=== PATIENT | female | born 1940 | race Caucasian/White ===

== ENCOUNTER 2017-05-20 20:01 | Inpatient (IN) ==
[2017-05-21] MEDS ORDERED: *HR* Morphine 2 MG/ML SYRINGE IVP ONE (01:25)
[2017-05-21] MEDS ORDERED: *HR* HYDROcodone/Acet 10/325 mg TABLET PO PRN (01:38)
[2017-05-21] MEDS ORDERED: Aspirin Enteric Coated 81 MG Tablet PO PRN (01:38)
[2017-05-21] MEDS ORDERED: Naloxone 0.4 MG/ML INJ IVP PRN (01:40)
[2017-05-21] MEDS ORDERED: Ondansetron 4 MG/2 ML VIAL IVP PRN (01:40)
--- NOTE | 2017-05-21 01:48 | Internal Med History&Physical ---
Date of Encounter: 05/21/17 Time of Encounter: 01:44 Assessment and Plan (1) Closed tibial fracture Current visit: Yes Status: Acute Consult orthopedics for surgical eval, nothing by mouth, IV morphine pain control Qualifiers: Encounter type: initial encounter Fracture morphology: comminuted Fracture alignment: nondisplaced Laterality: right Qualified Code(s): S82.254A - Nondisplaced comminuted fracture of shaft of right tibia, initial encounter for closed fracture (2) Closed fibular fracture Current visit: Yes Status: Acute Consult orthopedics for surgical eval, nothing by mouth, IV morphine pain control Qualifiers: Encounter type: initial encounter Fracture alignment: nondisplaced Laterality: right Qualified Code(s): S82.464A - Nondisplaced segmental fracture of shaft of right fibula, initial encounter for closed fracture (3) Fall Current visit: Yes Status: Acute fall with tailbone pain. hx of osteoporosis with compression fracture. Check CT lumbar/pelvis to r/o acute pathology - did not appear to have been completed in the outside ED Qualifiers: Encounter type: initial encounter Qualified Code(s): W19.XXXA - Unspecified fall, initial encounter (4) Chronic pain Current visit: Yes Status: Acute Continue fentanyl and home PO med Prn IV morphine for acute on chronic pain. Qualifiers: Chronic pain type: chronic pain syndrome Qualified Code(s): G89.4 - Chronic pain syndrome (5) HTN (hypertension), benign Current visit: Yes Status: Acute continue med Internal Medicine - H&P: HPI Chief complaint: Left leg pain Admitted From: Home History of present illness: Ms. STREET is a 77 year old female with a hx of chronic pain from compression back fractures in the setting of osteoarthritis, HTN who presents with mechanical fall leading to comminuted impacted fracture of proximal tibia and fibular head fracture. She was walking home from [place] when she took a step down with 2 feet to the ground when she lost her balance and fell injuring her right leg and her tailbone as she landed on her back. She reports severe 10 out of 10 pain over her right lower extremity, she, radiating to the entire leg. She also had tailbone pain from local impact. She denies any lower extremity paresthesia or neurovascular compromise on review She was seen at [place] emergency department who informed Dr Yancey has accepted the case. Right leg x-ray report reviewed with comminuted impacted fracture of the proximal tibial and a fracture of the fibular head Past Med Surg Social Fam HX - Past Medical History Medical history: arthritis, GERD, hypertension, osteoporosis Psychiatric history: no psych history - Past Surgical History Surgical History: no surgical history - Social History Smoking Status: Never smoker Smokeless Tobacco Status: No Alcohol use: none Drug use: none - Additional Family History Additional family history: HTN Internal Medicine - H&P: Meds Aspirin Enteric Coated [Aspirin EC] 81 mg PO DAILY PRN 05/20/17 [History] Cholecalciferol (Vitamin D3) [Vitamin D] 1,000 unit PO DAILY 05/20/17 [History] FentaNYL PATCH [Duragesic] 50 mcg TD Q72H 05/20/17 [History] HYDROcodone/Acet 10/325 mg [[place] 10-325 mg] 1 tab PO Q8H PRN 05/20/17 [History] Lisinopril [Lisinopril] 30 mg PO DAILY 05/20/17 [History] Metoprolol [Lopressor] 25 mg PO BID 05/20/17 [History] Multivitamin [Multi-Day Vitamins] 1 each PO DAILY 05/20/17 [History] hydroCHLOROthiazide [Hydrochlorothiazide] 25 mg PO DAILY 05/20/17 [History] 3 Allergy/AdvReac Type Severity Reaction Status Date / Time Sulfa (Sulfonamide AdvReac See Verified 05/20/17 22:13 Antibiotics) Comments All Systems PM: A 10-system review of systems was performed and is negative for pertinent findings except as documented above in the HPI. Review of systems: ROS 14 point review of systems reviewed as best as possible given presentation. Pertinent positive or negative as per HPI or otherwise reviewed as negative - Constitutional Vitals: Temp Pulse Resp BP Pulse Ox 98.3 F 82 17 137/76 96 05/20/17 23:46 05/20/17 23:46 05/20/17 23:46 05/20/17 23:46 05/20/17 23:46 Exam: General - AAO x 3 Psych - Appropriate affect/speech. No agitation Eyes - JOSH. Eye lids intact. No scleral icterus Heart - Sinus. RRR. S1 and S2 present. No added HS/murmurs appreciated. No elevated JVD appreciated. Lung - Adequate air entry b/l, No crackles/wheezes appreciated GI - Soft, non-tender. No hepatosplenomegaly/ascites. BS+ - No CVA/suprapubic tenderness or palpable bladder distension MSK - right leg in a brace, sensation intact, tailbone pain
[2017-05-21] MEDS: Ringers Solution, Lactated 1,000 ML IVC SCH ×2 (02:48→14:24)
[2017-05-21] MEDS: *HR* Enoxaparin 30 MG/0.3 ML SYRINGE SQ SCH (05:21)
[2017-05-21] MEDS: *HR* Morphine 2 MG/ML SYRINGE IVP PRN ×3 (05:21→16:24)
[2017-05-21 06:25] LABS: Basophils % 0.1 %; Hematocrit 29.4 % (35.3-44.9); Hemoglobin 9.9 g/dL (11.5-15.4); Immature Granulocytes % 0.4 % (0-4); Lymphocytes # 0.7 K/mcL (0.6-4.6); Lymphocytes % 10.5 %; Mean Corpuscular HGB Conc 33.7 g/dL (31.6-35.5); Mean Corpuscular Hemoglobin 30.4 pg (28.0-33.3); Mean Corpuscular Volume 90.2 fL (83.0-100.0); Mean Platelet Volume 10.8 fL (9.4-12.4); Monocytes # 0.7 K/mcL (0.0-1.3); Monocytes % 10.1 %; Neutrophils # 5.5 K/mcL (1.6-8.9); Platelet Count 160 K/mcL (140-400); Red Blood Count 3.26 M/mcL (3.82-4.97); Red Cell Distribution Width 13.7 % (11.5-14.5); Segmented Neutrophils % 78.9 %
[2017-05-21 06:38] LABS: Potassium 4.4 mEq/L (3.5-4.5)
[2017-05-21 06:40] LABS: INR 1.1; Prothrombin Time 12.1 Seconds (9.4-12.1)
[2017-05-21 06:42] LABS: Activated Partial Thrombo Time 29.3 Seconds (26.0-36.0)
[2017-05-21] MEDS: *HR* HYDROcodone/Acet 10/325 mg TABLET PO PRN ×3 (09:06→22:02)
[2017-05-21] MEDS: hydroCHLOROthiazide 25 MG TABLET PO SCH (09:06)
[2017-05-21] MEDS: Cholecalciferol (D-3) 1,000 UNIT TABLET PO SCH (09:07)
--- NOTE | 2017-05-21 10:28 | Orthopedic Consult Note ---
Date of Encounter: 05/21/17 Time of Encounter: 10:26 History of Present Illness HPI: Ms. STREET is a 77 year old female presenting from [place] for right knee and leg pain after a mechanical fall. Patient seen and examined at bedside. XR/XR tibia fibula RT IMPRESSION: 1. Acute right tibial plateau fracture extending from the extreme lateral portion of the lateral tibial plateau throughout the proximal metaphysis with impaction and angulation, most likely Schatzker type 6. 2. Acute minimally displaced fracture of the right fibular neck. 3. Moderate to large right suprapatellar lipohemarthrosis. 4. Focal subcutaneous contusion anterior to the proximal right tibia. 5. Diffuse subcutaneous edema extending from the right knee inferiorly. 6. Bony demineralization. D/ / Atif Burton MD / Atif Burton MD Case discussed with Dr. Yancey. At this time, fractures are considered non-operative in nature and will be managed conservatively with locked extension TROM bracing at all times and partial weight bearing and close follow up with [facility]. We will have her present to the office for outpatient follow up in 1 week. Patient will likely benefit from inpatient rehab following discharge. Past Med Surg Social Fam HX - Past Medical History Medical history: arthritis, GERD, hypertension, osteoporosis Psychiatric history: no psych history - Past Surgical History Surgical History: no surgical history - Social History Smoking Status: Never smoker Smokeless Tobacco Status: No Alcohol use: none Drug use: none Medications and Allergies Aspirin Enteric Coated [Aspirin EC] 81 mg PO DAILY PRN 05/20/17 [History] Cholecalciferol (Vitamin D3) [Vitamin D] 1,000 unit PO DAILY 05/20/17 [History] FentaNYL PATCH [Duragesic] 50 mcg TD Q72H 05/20/17 [History] HYDROcodone/Acet 10/325 mg [[place] 10-325 mg] 1 tab PO Q8H PRN 05/20/17 [History] Lisinopril [Lisinopril] 30 mg PO DAILY 05/20/17 [History] Metoprolol [Lopressor] 25 mg PO BID 05/20/17 [History] Multivitamin [Multi-Day Vitamins] 1 each PO DAILY 05/20/17 [History] hydroCHLOROthiazide [Hydrochlorothiazide] 25 mg PO DAILY 05/20/17 [History] 3 Allergy/AdvReac Type Severity Reaction Status Date / Time Sulfa (Sulfonamide AdvReac See Verified 05/20/17 22:13 Antibiotics) Comments All Systems Reviewed: A 10-system review of systems was performed and is negative for pertinent findings except as documented above in the HPI. Physical Exam - Constitutional Vitals: Temp Pulse Resp BP Pulse Ox 98.4 F 94 14 169/74 96 05/21/17 07:23 05/21/17 07:23 05/21/17 07:23 05/21/17 07:23 05/21/17 07:23 Results - Labs Result Diagrams: 05/21/17 06:05/21/17 06:17 Labs: Abnormal lab results RBC 3.26 M/mcL (3.82-4.97) L 05/21/17 06:17 Hgb 9.9 g/dL (11.5-15.4) L 05/21/17 06:17 Hct 29.4 % (35.3-44.9) L 05/21/17 06:17 BUN 27 mg/dL (7-20) H 05/21/17 06:17 Creatinine 1.13 mg/dL (0.57-1.11) H 05/21/17 06:17 Est GFR ( Amer) 57 (> 60) L 05/21/17 06:17 Est GFR (Non-Af Amer) 47 (> 60) L 05/21/17 06:17 Glucose 116 mg/dL (70-99) H 05/21/17 06:17 H & H 05/21/17 Range/Units 06:17 Hgb 9.9 L (11.5-15.4) g/dL Hct 29.4 L (35.3-44.9) % All other labs normal. Consult Discharge Plan - Plan Referrals: Loretta Crespo MD [Primary Care Provider] -
--- NOTE | 2017-05-21 13:28 | Orthopedic Consult Note ---
Date of Encounter: 05/21/17 Time of Encounter: 13:27 History of Present Illness HPI: Ms. STREET is a 77 year old female Status post fall yesterday with injury to right leg. Patient seen this morning alert and oriented 3. Physical exam right lower extremity in a knee immobilizer neurovascularly intact. X-rays reviewed show a minimally displaced fracture proximal right tibia. Based on the patient's age recommendation is conservative management. She will be placed in a hinged knee brace. Partial weightbearing 50% follow-up in the office in one week. Past Med Surg Social Fam HX - Past Medical History Medical history: arthritis, GERD, hypertension, osteoporosis Psychiatric history: no psych history - Past Surgical History Surgical History: no surgical history - Social History Smoking Status: Never smoker Smokeless Tobacco Status: No Alcohol use: none Drug use: none Medications and Allergies Aspirin Enteric Coated [Aspirin EC] 81 mg PO DAILY PRN 05/20/17 [History] Cholecalciferol (Vitamin D3) [Vitamin D] 1,000 unit PO DAILY 05/20/17 [History] FentaNYL PATCH [Duragesic] 50 mcg TD Q72H 05/20/17 [History] HYDROcodone/Acet 10/325 mg [[place] 10-325 mg] 1 tab PO Q8H PRN 05/20/17 [History] Lisinopril [Lisinopril] 30 mg PO DAILY 05/20/17 [History] Metoprolol [Lopressor] 25 mg PO BID 05/20/17 [History] Multivitamin [Multi-Day Vitamins] 1 each PO DAILY 05/20/17 [History] hydroCHLOROthiazide [Hydrochlorothiazide] 25 mg PO DAILY 05/20/17 [History] 3 Allergy/AdvReac Type Severity Reaction Status Date / Time Sulfa (Sulfonamide AdvReac See Verified 05/20/17 22:13 Antibiotics) Comments All Systems Reviewed: A 10-system review of systems was performed and is negative for pertinent findings except as documented above in the HPI. Physical Exam - Constitutional Vitals: Temp Pulse Resp BP Pulse Ox 98.1 F 71 14 147/64 96 05/21/17 12:20 05/21/17 12:20 05/21/17 12:20 05/21/17 12:20 05/21/17 12:20 Results - Labs Result Diagrams: 05/21/17 06:17 05/21/17 06:17 Labs: Abnormal lab results RBC 3.26 M/mcL (3.82-4.97) L 05/21/17 06:17 Hgb 9.9 g/dL (11.5-15.4) L 05/21/17 06:17 Hct 29.4 % (35.3-44.9) L 05/21/17 06:17 BUN 27 mg/dL (7-20) H 05/21/17 06:17 Creatinine 1.13 mg/dL (0.57-1.11) H 05/21/17 06:17 Est GFR ( Amer) 57 (> 60) L 05/21/17 06:17 Est GFR (Non-Af Amer) 47 (> 60) L 05/21/17 06:17 Glucose 116 mg/dL (70-99) H 05/21/17 06:17 H & H 05/21/17 Range/Units 06:17 Hgb 9.9 L (11.5-15.4) g/dL Hct 29.4 L (35.3-44.9) % All other labs normal. Consult Discharge Plan - Plan Referrals: Loretta Crespo MD [Primary Care Provider] -
[2017-05-22] MEDS: Ringers Solution, Lactated 1,000 ML IVC SCH ×3 (00:45→22:10)
[2017-05-22] MEDS: *HR* Enoxaparin 30 MG/0.3 ML SYRINGE SQ SCH (04:48)
[2017-05-22] MEDS: *HR* HYDROcodone/Acet 10/325 mg TABLET PO PRN ×3 (04:49→17:15)
[2017-05-22 06:17] LABS: Basophils % 0.1 %; Hematocrit 26.7 % (35.3-44.9); Hemoglobin 8.7 g/dL (11.5-15.4); Immature Granulocytes % 0.5 % (0-4); Lymphocytes # 1.4 K/mcL (0.6-4.6); Lymphocytes % 18.3 %; Mean Corpuscular HGB Conc 32.6 g/dL (31.6-35.5); Mean Corpuscular Hemoglobin 29.8 pg (28.0-33.3); Mean Corpuscular Volume 91.4 fL (83.0-100.0); Mean Platelet Volume 10.9 fL (9.4-12.4); Monocytes # 0.8 K/mcL (0.0-1.3); Monocytes % 10.7 %; Neutrophils # 5.4 K/mcL (1.6-8.9); Platelet Count 132 K/mcL (140-400); Red Blood Count 2.92 M/mcL (3.82-4.97); Red Cell Distribution Width 13.9 % (11.5-14.5); Segmented Neutrophils % 70.4 %
[2017-05-22 06:30] LABS: BUN/Creatinine Ratio 20 (6-26); Blood Urea Nitrogen 20 mg/dL (7-20); Calcium 8.7 mg/dL (8.6-10.8); Carbon Dioxide 26 mEq/L (19-29); Chloride 102 mEq/L (98-109); Glucose 111 mg/dL (70-99); Osmolality,Calculated 287 (280-300); Potassium 4.1 mEq/L (3.5-4.5); Sodium 137 mEq/L (136-145); eGFR For African Americans > 60 (> 60); eGFR For Non-African Americans 53 (> 60)
--- NOTE | 2017-05-22 08:37 | Orthopedics Progress Note ---
Date of Encounter: 05/22/17 Time of Encounter: 08:36 Subjective Interval history: Patient seen this morning brace intact continue with nonoperative management follow-up as outpatient. Objective Vital signs: Vital Signs Temp Pulse Resp BP Pulse Ox 05/22/17 07:33 98.8 F 88 14 166/73 97 05/22/17 05:23 147/76 05/22/17 04:45 99.2 F 79 17 173/64 97 05/21/17 23:51 98.6 F 85 16 173/77 97 05/21/17 19:50 98.2 F 95 16 128/75 97 05/21/17 16:43 99.1 F 80 14 176/77 95 05/21/17 16:37 98.6 F 79 16 153/76 98 05/21/17 12:20 98.1 F 71 14 147/64 96 Intake and Output 05/21/17 05/22/17 05/22/17 23:59 07:59 15:59 Intake Total 480 / 480 1240 / 1240 Output Total 500 / 500 Balance 480 / 480 740 / 740 Intake: IV Fluids 1000 / 1000 Lactated Ringers 1,000 ML @ 100 1000 / 1000 mls/hr IVC .Q10H ISAEL Rx#: [id number] Oral 480 / 480 240 / 240 Output: Urine 500 / 500 Other: # Voids 1 - Labs CBC & BMP: 05/22/17 05:03 05/22/17 05:03 Labs: Abnormal lab results RBC 2.92 M/mcL (3.82-4.97) L 05/22/17 05:03 Hgb 8.7 g/dL (11.5-15.4) L 05/22/17 05:03 Hct 26.7 % (35.3-44.9) L 05/22/17 05:03 Plt Count 132 K/mcL (140-400) L 05/22/17 05:03 Est GFR (Non-Af Amer) 53 (> 60) L 05/22/17 05:03 Glucose 111 mg/dL (70-99) H 05/22/17 05:03 Consult Discharge Plan - Plan Referrals: Loretta Crespo MD [Primary Care Provider] -
[2017-05-22] MEDS ORDERED: *HR* FentaNYL PATCH 50 MCG PATCH TD SCH (09:00)
[2017-05-22] MEDS: hydroCHLOROthiazide 25 MG TABLET PO SCH (10:21)
[2017-05-22] MEDS: Cholecalciferol (D-3) 1,000 UNIT TABLET PO SCH (10:21)
--- NOTE | 2017-05-22 19:22 | Internal Med Progress Note ---
Date of Encounter: 05/22/17 Time of Encounter: 10:00 - Assessment and plan (1) Closed tibial fracture Current Visit: Yes Status: Acute Assessment and plan: Patient not able to ambulate secondary to right lower extremity pain due to tibial fracture. -Orthopedics recommends conservative management. -[place] requiring IV pain medications. -Patient will need placement at [facility] for rehabilitation. Qualifiers: Encounter type: initial encounter Fracture morphology: comminuted Fracture alignment: nondisplaced Laterality: right Qualified Code(s): S82.254A - Nondisplaced comminuted fracture of shaft of right tibia, initial encounter for closed fracture (2) HTN (hypertension), benign Current Visit: Yes Status: Acute Assessment and plan: Continue home medications. (3) Fall Current Visit: Yes Status: Acute Assessment and plan: Suspect mechanical Qualifiers: Encounter type: initial encounter Qualified Code(s): W19.XXXA - Unspecified fall, initial encounter - Subjective Interval history: Patient not able to ambulate secondary to right lower extremity pain. - Constitutional Vitals: Temp Pulse Resp BP Pulse Ox 99.1 F 76 14 163/73 96 05/22/17 16:16 05/22/17 16:16 05/22/17 16:16 05/22/17 16:16 05/22/17 16:16 - Respiratory Respiratory exam: Present: CTAB. Absent: accessory muscle use, rales, rhonchi, wheezes - Cardiovascular Cardiovascular exam: Present: RRR, +S1, +S2. Absent: diastolic murmur, gallop, rubs, systolic murmur Internal Medicine: Result - Labs CBC & Chem 7: 05/22/17 05:03 05/22/17 05:03 Labs: Short CBC 05/22/17 Range/Units 05:03 WBC 7.7 (4.3-11.1) K/mcL Hgb 8.7 L (11.5-15.4) g/dL Hct 26.7 L (35.3-44.9) % Plt Count 132 L (140-400) K/mcL Neutrophils # 5.4 (1.6-8.9) K/mcL BMP 05/22/17 05:03 Sodium 137 Potassium 4.1 Chloride 102 Carbon Dioxide 26 BUN 20 Creatinine 1.01 Glucose 111 H Calcium 8.7 - ABG Interpretation ABG results: PT/INR, D-dimer PT 12.1 Seconds (9.4-12.1) 05/21/17 06:17 Consult Discharge Plan - Plan Referrals: Loretta Crespo MD [Primary Care Provider] -
[2017-05-23] MEDS: *HR* Morphine 2 MG/ML SYRINGE IVP PRN ×3 (01:18→18:16)
[2017-05-23] MEDS: *HR* HYDROcodone/Acet 10/325 mg TABLET PO PRN ×3 (04:56→22:03)
[2017-05-23] MEDS: *HR* Enoxaparin 30 MG/0.3 ML SYRINGE SQ SCH (04:56)
[2017-05-23 06:09] LABS: Basophils % 0.2 %; Hematocrit 21.3 % (35.3-44.9); Immature Granulocytes % 0.3 % (0-4); Lymphocytes # 1.3 K/mcL (0.6-4.6); Lymphocytes % 19.4 %; Mean Corpuscular HGB Conc 33.3 g/dL (31.6-35.5); Mean Corpuscular Hemoglobin 30.2 pg (28.0-33.3); Mean Corpuscular Volume 90.6 fL (83.0-100.0); Mean Platelet Volume 11.2 fL (9.4-12.4); Monocytes % 15.6 %; Neutrophils # 4.2 K/mcL (1.6-8.9); Platelet Count 109 K/mcL (140-400); Red Blood Count 2.35 M/mcL (3.82-4.97); Red Cell Distribution Width 13.8 % (11.5-14.5); Segmented Neutrophils % 64.5 %
[2017-05-23 06:21] LABS: BUN/Creatinine Ratio 20 (6-26); Blood Urea Nitrogen 17 mg/dL (7-20); Calcium 8.1 mg/dL (8.6-10.8); Carbon Dioxide 30 mEq/L (19-29); Chloride 103 mEq/L (98-109); Glucose 100 mg/dL (70-99); Osmolality,Calculated 288 (280-300); Potassium 4.2 mEq/L (3.5-4.5); Sodium 138 mEq/L (136-145); eGFR For African Americans > 60 (> 60); eGFR For Non-African Americans > 60 (> 60)
[2017-05-23 06:23] LABS: Hemoglobin 7.1 g/dL (11.5-15.4)
[2017-05-23] MEDS: hydroCHLOROthiazide 25 MG TABLET PO SCH (08:21)
[2017-05-23] MEDS: Cholecalciferol (D-3) 1,000 UNIT TABLET PO SCH (08:21)
[2017-05-23] MEDS: Ringers Solution, Lactated 1,000 ML IVC SCH (08:22)
--- NOTE | 2017-05-23 18:26 | Internal Med Progress Note ---
Date of Encounter: 05/23/17 Time of Encounter: 10:00 - Assessment and plan (1) Closed tibial fracture Current Visit: Yes Status: Acute Assessment and plan: Patient not able to ambulate secondary to right lower extremity pain due to tibial fracture. -Orthopedics recommends conservative management. -Patient will need placement at [facility] for rehabilitation. Qualifiers: Encounter type: subsequent encounter Fracture morphology: comminuted Fracture alignment: nondisplaced Laterality: right Fracture healing: with routine healing Qualified Code(s): S82.254D - Nondisplaced comminuted fracture of shaft of right tibia, subsequent encounter for closed fracture with routine healing (2) HTN (hypertension), benign Current Visit: Yes Status: Acute Assessment and plan: Continue home medications. (3) Fall Current Visit: Yes Status: Acute Assessment and plan: Suspect mechanical Qualifiers: Encounter type: initial encounter Qualified Code(s): W19.XXXA - Unspecified fall, initial encounter - Subjective Interval history: Patient not able to ambulate secondary to right lower extremity pain. - Constitutional Vitals: Temp Pulse Resp BP Pulse Ox 98.7 F 87 16 148/73 96 05/23/17 14:50 05/23/17 14:50 05/23/17 14:50 05/23/17 14:50 05/23/17 14:50 - Respiratory Respiratory exam: Present: CTAB. Absent: accessory muscle use, rales, rhonchi, wheezes - Cardiovascular Cardiovascular exam: Present: RRR, +S1, +S2. Absent: diastolic murmur, gallop, rubs, systolic murmur Internal Medicine: Result - Labs CBC & Chem 7: 05/23/17 05:44 05/23/17 05:44 Labs: Short CBC 05/23/17 Range/Units 05:44 WBC 6.5 (4.3-11.1) K/mcL Hgb 7.1 L D (11.5-15.4) g/dL Hct 21.3 L (35.3-44.9) % Plt Count 109 L (140-400) K/mcL Neutrophils # 4.2 (1.6-8.9) K/mcL BMP 05/23/17 05:44 Sodium 138 Potassium 4.2 Chloride 103 Carbon Dioxide 30 H BUN 17 Creatinine 0.85 Glucose 100 H Calcium 8.1 L - ABG Interpretation ABG results: PT/INR, D-dimer PT 12.1 Seconds (9.4-12.1) 05/21/17 06:17 Consult Discharge Plan - Plan Referrals: Loretta Crespo MD [Primary Care Provider] -
[2017-05-24] MEDS: *HR* Enoxaparin 30 MG/0.3 ML SYRINGE SQ SCH (05:31)
[2017-05-24] MEDS: *HR* HYDROcodone/Acet 10/325 mg TABLET PO PRN ×2 (09:43→15:52)
[2017-05-24] MEDS: Cholecalciferol (D-3) 1,000 UNIT TABLET PO SCH (09:43)
[2017-05-24] MEDS: hydroCHLOROthiazide 25 MG TABLET PO SCH (09:43)
[2017-05-24 11:24] VITALS: BP 135/64
[2017-05-24 12:41] LABS: Hematocrit 23.6 % (35.3-44.9); Hemoglobin 7.9 g/dL (11.5-15.4)
--- NOTE | 2017-05-24 14:02 | Discharge Summary ---
Date of Encounter: 05/24/17 Time of Encounter: 12:00 - Discharge Diagnosis (1) Closed tibial fracture Priority: Primary Status: Acute Qualifiers: Encounter type: subsequent encounter Fracture morphology: comminuted Fracture alignment: nondisplaced Laterality: right Fracture healing: with routine healing Qualified Code(s): S82.254D - Nondisplaced comminuted fracture of shaft of right tibia, subsequent encounter for closed fracture with routine healing (2) HTN (hypertension), benign Priority: Secondary Status: Acute (3) Fall Priority: Primary Status: Acute Qualifiers: Encounter type: initial encounter Qualified Code(s): W19.XXXA - Unspecified fall, initial encounter - Discharge Medications Home Medications: Aspirin Enteric Coated [Aspirin EC] 81 mg PO DAILY PRN 05/20/17 [History] Cholecalciferol (Vitamin D3) [Vitamin D3] 1,000 unit PO DAILY 05/20/17 [History] FentaNYL PATCH [Duragesic] 50 mcg TD Q72H 05/20/17 [History] HYDROcodone/Acet 10/325 mg [[place] 10-325 mg] 1 tab PO Q8H PRN 05/20/17 [History] Lisinopril 30 mg PO DAILY 05/20/17 [History] Metoprolol [Lopressor] 25 mg PO BID 05/20/17 [History] Multivitamin [Multi-Day Vitamins] 1 each PO DAILY 05/20/17 [History] hydroCHLOROthiazide [Hydrochlorothiazide] 25 mg PO DAILY 05/20/17 [History] Allergies/Adverse Reactions: 3 Allergy/AdvReac Type Severity Reaction Status Date / Time Sulfa (Sulfonamide AdvReac See Verified 05/20/17 22:13 Antibiotics) Comments Date of admission: 05/21/17 01:40 Primary care physician: Loretta Crespo, Consults: 05/21/17 01:42 Consult to Orthopedic Surgery [CONS] Routine Consulting Provider: Orthopedics [facility] Reason for Consult: fracture bone Call Completed: Yes 05/21/17 10:40 Consult to Occupational Therapy [CONS] Stat Comment: Evaluate, develop and implement POC Reason for Consult: d/c planning Consult to Physical Therapy [CONS] Stat Comment: Evaluate, develop and implement POC Reason for Consult: d/c planning Consult to Supervisor Production [CONS] Routine Reason for SW Consult: d/c planning - Patient Status Disposition: Transfer LTC Condition: Good - Discharge Instructions - Diet and Activity Activity: as per physical therapy Hospital course: Patient is a 77 year old female with past medical history significant for chronic pain from compression back fractures in the setting of osteoarthritis and HTN, who presented to the ER on 05/21/17 with mechanical fall leading to comminuted impacted fracture of proximal tibia and fibular head fracture. [facility] she took a step down with 2 feet to the ground when she lost her balance and fell injuring her right leg and her tailbone as she landed on her back. She reported a severe 10 out of 10 pain over her right lower extremity. She also had tailbone pain from local impact. She was seen at [place] emergency department who informed Dr. Yancey has accepted the case. Right leg x-ray report reviewed with comminuted impacted fracture of the proximal tibial and a fracture of the fibular head. Orthopedics was consulted with recommendations for conservative management with locked extension TROM bracing at all times and partial weight bearing and close follow up with [facility]. Recommendations also for inpatient rehab. In addition patient was also found to have acute on chronic anemia but remained hemodynamically stable. Patient will be discharged to [facility] in [place] for rehabilitation and strength/conditioning. Patient will also need hemoglobin monitored while at [facility]. - Time Spent with Patient Total time spent providing and/or coordinating discharge services: Less than 30 minutes - Constitutional Vitals: Temp Pulse Resp BP Pulse Ox 98.9 F 88 15 135/64 95 05/24/17 11:19 05/24/17 11:19 05/24/17 11:19 05/24/17 11:19 05/24/17 11:19 - Expanded Lower Extremities Exam Lower Leg exam: Present: swelling (Right lower extremity edema surrounding tibia /patella region.)
--- NOTE | 2017-05-24 14:11 | Physician Discharge Referral ---
ExtendedCare Referral Info Provider in Charge after Transfer: PCP Institutional Level of Care: Skilled - Diagnosis (1) Closed tibial fracture Priority: Primary Status: Acute (2) HTN (hypertension), benign Priority: Secondary Status: Acute (3) Fall Priority: Primary Status: Acute - Transfer Medications Home Medications: Aspirin Enteric Coated [Aspirin EC] 81 mg PO DAILY PRN 05/20/17 [History] Cholecalciferol (Vitamin D3) [Vitamin D3] 1,000 unit PO DAILY 05/20/17 [History] FentaNYL PATCH [Duragesic] 50 mcg TD Q72H 05/20/17 [History] HYDROcodone/Acet 10/325 mg [[place] 10-325 mg] 1 tab PO Q8H PRN 05/20/17 [History] Lisinopril 30 mg PO DAILY 05/20/17 [History] Metoprolol [Lopressor] 25 mg PO BID 05/20/17 [History] Multivitamin [Multi-Day Vitamins] 1 each PO DAILY 05/20/17 [History] hydroCHLOROthiazide [Hydrochlorothiazide] 25 mg PO DAILY 05/20/17 [History] Allergies/Adverse Reactions: 3 Allergy/AdvReac Type Severity Reaction Status Date / Time Sulfa (Sulfonamide AdvReac See Verified 05/20/17 22:13 Antibiotics) Comments - Respiratory Orders Smoking Cessation: Smoking cessation has been advised. For more information, call the [place] Tobacco Quit Line at 4-804-UHWO-NOW. - Lab Orders Lab Orders: CBC (Anemia) - Rehabiliation Orders Rehab Potential: Good CERTIFICATION: I certify that the transfer of the above named patient to an Extended Care Facility is necessary for the continuing treatment of the diagnosis listed. The above information is true and accurate reflection of patient's current condition. Confidential - Redisclosure prohibited without a patient's written consent.
== END 2017-05-24 17:25 | DRG 563 ==
LOC: 3NENU
PROVIDERS: ADMIT Hospitalist; ATTEND Hospitalist